=== PATIENT | female | born 1975 | race Caucasian/White ===

== ENCOUNTER 2019-05-05 12:00 | Emergency (ER) | payer BC ==
[~2019-05-05] VITALS: Ht 165.1 cm; Wt 102.3 kg
[~2019-05-05 12:00] MED LIST: ALBU8.5H5 INH
[2019-05-05 12:11] VITALS: BP 163/86
--- NOTE | 2019-05-05 12:27 | NUR ---
PT HERE WITH C/O POSSIBLE ALLERGIC REACTION TO PAIN MEDICINE THAT WAS PRESCRIBED AFTER SHOULDER SURGERY ON TUESDAY. PT STATES "I FELT SHORT OF BREATH AND ITCHY AND TOOK BENADRYL AND THAT HELPED. I DON'T HAVE THAT ANYMORE BUT THEY SENT ME HERE TO GET NEW PAIN MEDS."
--- NOTE | 2019-05-05 13:06 | NUR ---
Patient/Caregiver given discharge instructions and they have confirmed that they understand the instructions. Patient ambulatory with steady gait.
== END 2019-05-05 13:11 | disposition home or self-care (01) ==
LOC: ED 13:05
DX: M25.511 Pain in right shoulder (principal); J45.909 Unspecified asthma, uncomplicated; Z76.0 Encounter for issue of repeat prescription
CPT/HCPCS: 99281